=== PATIENT | male | born 1965 | race African-American/Black ===

== ENCOUNTER 2021-04-02 10:59 | Emergency (ER) | payer OTHER ==
[~2021-04-02] VITALS: Ht 190.5 cm; Wt 93.9 kg
[2021-04-02 11:42] LABS: ABSOLUTE BASOPHILS 0.1 thou/uL (0.0-0.2); ABSOLUTE EOSINOPHILS 0.4 thou/uL (0.0-0.7); ABSOLUTE LYMPHOCYTES 1.4 thou/uL (0.8-5.3); ABSOLUTE NEUTROPHILS 14.3 thou/uL (1.6-8.1); BASOPHILS 0.3 %; EOSINOPHILS 2.3 %; HEMATOCRIT 29.6 % (42.0-52.0); HEMOGLOBIN 9.3 gm/dL (14.0-18.0); LYMPHOCYTES 7.5 %; MCH 25.6 pg (26.0-34.0); MCHC 31.2 g/dL (28.0-37.0); MONOCYTES 10.9 %; MPV 6.8 fl. (7.2-11.1); NUCLEATED RBCS 0 /100WBC; PLATELET COUNT* 567 thou/uL (150-400); RBC 3.61 mil/uL (4.50-6.00); RDW-CV 16.3 % (10.5-14.5); WBC 18.1 thou/uL (4.0-11.0)
[2021-04-02 11:46] LABS: CALCIUM 9.1 mg/dL (8.5-10.1); CREATININE 0.8 mg/dL (0.6-1.3); POTASSIUM 4.1 mmol/L (3.5-5.1)
[2021-04-02 11:50] LABS: ALBUMIN 1.7 g/dL (3.4-5.0); TOTAL BILIRUBIN 0.7 mg/dL (<0.1-1.0); TOTAL PROTEIN 7.8 g/dL (6.4-8.2)
[2021-04-02] MEDS ORDERED: ZPAK PO (13:25)
[2021-04-02 13:32] VITALS: BP 131/78
--- NOTE | 2021-04-03 11:56 | EKG ---
[place] [address] ELECTROCARDIOGRAM REPORT Name: CHANDA ELLSWORTH Room: [facility]#: [id number] Admission: 04/02/21 Attend Phys: Discharge: 04/02/21 Date of : 67 Date of Service: 04/02/21 1148 Report #: [id number] THIS REPORT FOR: //name// [facility] ED Test Date: 2021-04-02 Test Time: 11:48:27 Pat Name: CHANDA ELLSWORTH Department: Room: Gender: Commercial Maintenance Technician: : [id number] Requested By: Rudy Farrell Order Number: [id number] MD: Wale Angela Measurements Intervals [place] Rate: 111 P: 59 NE: 148 QRS: 42 QRSD: 88 T: 42 QT: 339 QTc: 461 Interpretive Statements Sinus tachycardia Probable left atrial enlargement No previous ECG available for comparison Electronically Signed On 04-03-2021 11:55:47 [employer]PRESENTATIVE by Wale Angela [email or web address] <ELECTRONICALLY SIGNED> By: Wale Angela MD, [facility] 04/03/21 1155 1148 1148 Wale Angela MD, FACC /EPI
== END 2021-04-02 13:33 | disposition home or self-care (01) ==
LOC: M.ERS 10:59
PROVIDERS: Physician Assistant
DX: R60.0 Localized edema (principal); D72.829 Elevated white blood cell count, unspecified; J98.11 Atelectasis; Z85.07 Personal history of malignant neoplasm of pancreas